=== PATIENT | male | born 1955 | race Caucasian/White ===

== ENCOUNTER → 2023-08-19 | Outpatient (CLI) | payer BC ==
[~2023-08-19] MED LIST: Iohexol 300 - 10 ML VIAL IV ONE
== END ==
LOC: COL.RAD 09:13
DX: S46.812A Strain of other muscles, fascia and tendons at shoulder and upper arm level, left arm, initial encounter (principal); M75.52 Bursitis of left shoulder; M24.812 Other specific joint derangements of left shoulder, not elsewhere classified; M75.82 Other shoulder lesions, left shoulder
CPT/HCPCS: Q9967